=== PATIENT | male | born 1945 | race Caucasian/White ===

== ENCOUNTER 2017-05-10 17:46 | Inpatient (IN) | payer OTHER ==
[~2017-05-10] VITALS: Ht 180.3 cm; Wt 86.7 kg
[2017-05-10 19:06] LABS: PLATELET COUNT 171 x10^3mcL (130-400); RED CELL DISTRIBUTION WIDTH 13.6 % (11.5-14.5)
[2017-05-10 19:13] LABS: BASOPHIL % 0 % (0-2)
[2017-05-10 19:14] LABS: CALCIUM 8.7 mg/dL (8.5-10.1); CARBON DIOXIDE 23.4 mmol/L (21-32); CHLORIDE SERUM 105 mmol/L (98-107); GFR1 > 60 mL/min; GLUCOSE SERUM 229 mg/dL (74-106); POTASSIUM SERUM 3.7 mmol/L (3.5-5.1); SODIUM SERUM 141 mmol/L (136-145)
[2017-05-10 19:19] LABS: ALKALINE PHOSPHATASE 77 U/L (46-116); ALT/SGPT 24 U/L (16-63); AST/SGOT 20 U/L (15-37); BILIRUBIN TOTAL 0.99 mg/dL (0.20-1.00); HDL CHOLESTEROL 37 mg/dL (40-60); TOTAL PROTEIN, SERUM 6.9 g/dL (6.4-8.2)
[2017-05-10 19:24] LABS: ALBUMIN 3.1 g/dL (3.4-5.0); CHOLESTEROL 75 mg/dL (<200)
[2017-05-10 21:25] LABS: microscopic required? YES; urine erythrocyte NEGATIVE (NEGATIVE)
[2017-05-10] MEDS ORDERED: METFORMIN HCL1000 MG PO (21:45)
[2017-05-10] MEDS ORDERED: ZESTRIL20 MG (21:46)
[2017-05-11] VITALS (7 sets, daily range): BP systolic 119–165; BP diastolic 68–89; Ht 180.3 cm; Wt 86.7 kg
[2017-05-11 06:42] LABS: BASOPHIL % 0.2 % (0-2); PLATELET COUNT 168 x10^3mcL (130-400); RED CELL DISTRIBUTION WIDTH 13.6 % (11.5-14.5)
[2017-05-11 06:55] LABS: CALCIUM 8.7 mg/dL (8.5-10.1); CHLORIDE SERUM 107 mmol/L (98-107); CREATININE SERUM 0.9 mg/dL (0.7-1.3); GFR1 > 60 mL/min; GLUCOSE SERUM 211 mg/dL (74-106); POTASSIUM SERUM 3.6 mmol/L (3.5-5.1); SODIUM SERUM 143 mmol/L (136-145)
[2017-05-11 08:00] LABS: microscopic required? YES; urine erythrocyte 3+ (NEGATIVE)
[2017-05-12 06:10] VITALS: BP 128/76
[2017-05-12 06:15] LABS: CALCIUM 8.9 mg/dL (8.5-10.1); CARBON DIOXIDE 27.9 mmol/L (21-32); CHLORIDE SERUM 109 mmol/L (98-107); CREATININE SERUM 0.9 mg/dL (0.7-1.3); GFR1 > 60 mL/min; GLUCOSE SERUM 188 mg/dL (74-106); SODIUM SERUM 146 mmol/L (136-145)
[2017-05-12 06:22] LABS: BASOPHIL % 0.6 % (0-2); PLATELET COUNT 162 x10^3mcL (130-400); RED CELL DISTRIBUTION WIDTH 13.4 % (11.5-14.5)
[2017-05-12 08:30] VITALS: BP 127/81
[2017-05-12 11:57] VITALS: BP 129/73
[2017-05-12 16:03] VITALS: BP 130/78
[2017-05-12 21:56] VITALS: BP 142/84
[2017-05-13 05:26] VITALS: BP 136/77
[2017-05-13 06:15] LABS: BASOPHIL % 0.4 % (0-2); PLATELET COUNT 194 x10^3mcL (130-400); RED CELL DISTRIBUTION WIDTH 13.6 % (11.5-14.5)
[2017-05-13 06:30] LABS: CALCIUM 9.2 mg/dL (8.5-10.1); CHLORIDE SERUM 107 mmol/L (98-107); CREATININE SERUM 0.9 mg/dL (0.7-1.3); GFR1 > 60 mL/min; GLUCOSE SERUM 163 mg/dL (74-106); POTASSIUM SERUM 4.1 mmol/L (3.5-5.1); SODIUM SERUM 143 mmol/L (136-145)
[2017-05-13 09:58] VITALS: BP 142/79
[2017-05-13 13:27] VITALS: BP 142/79
[2017-05-13 14:28] VITALS: BP 150/80
[2017-05-13 18:02] VITALS: BP 145/69
== END 2017-05-13 20:36 | disposition other institution (70) | DRG 177 ==
LOC: ED 17:46 → EDBD 17:46 → ED 17:46 → DU 21:39
PROVIDERS: Emergency Medicine; Internal Medicine
DX: J69.0 Pneumonitis due to inhalation of food and vomit (principal); J96.01 Acute respiratory failure with hypoxia; J44.0 Chronic obstructive pulmonary disease with (acute) lower respiratory infection; J44.1 Chronic obstructive pulmonary disease with (acute) exacerbation; I10 Essential (primary) hypertension; E11.65 Type 2 diabetes mellitus with hyperglycemia; J20.9 Acute bronchitis, unspecified; T17.990A Other foreign object in respiratory tract, part unspecified in causing asphyxiation, initial encounter
CPT/HCPCS: 36600; 82962; 83880; 87804; J0456; J0696; J1644; J1956; J2543; J7030; J7050; J7613; J7620; J7626; Q0092; Q9967